=== PATIENT | male | born 1960 | race Caucasian/White ===

== ENCOUNTER 2021-03-20 18:10 | Emergency (ER) | payer OTHER ==
[~2021-03-20] VITALS: Ht 182.9 cm; Wt 86.4 kg
[2021-03-20 19:06] LABS: COLLECTION METHOD CLEAN CATCH
[2021-03-20 19:11] LABS: BASO % 0.3 % (0.0-2.0); EOS % 0.3 % (0-4.0); GRAN # 10.9 (1.4-6.5); GRAN % 75.6 % (42.2-75.2); HEMATOCRIT 48.2 % (42.0-52.0); HEMOGLOBIN 16.3 g/dl (13.5-18.0); LYMPH # 1.9 (1.2-3.4); MEAN CELL VOLUME 90 fl (80.0-100.0); MEAN CORPUSCULAR HEMOGLOBIN 30 pg (27.0-31.0); MEAN CORPUSCULAR HGB CONC 34 g/dl (33.0-37.0); MEAN PLATELET VOLUME 10.9 fl (7.4-10.4); MONO # 1.5 (0.1-0.6); MONO % 10.3 % (1.7-9.3); PLATELET COUNT 312 K/mm3 (130-400); RED BLOOD COUNT 5.36 M/mm3 (4.20-5.60); REDCELL DISTRIBUTION WIDTH-CV 13.2 % (11.5-14.5)
[2021-03-20 19:17] LABS: BILIRUBIN,TOTAL 0.6 mg/dL (0.0-1.0); CALCIUM 9.7 mg/dL (8.4-10.2); CREATININE, serum 0.89 (0.66-1.25); POTASSIUM 3.8 mmol/L (3.4-5.0)
[2021-03-20 19:28] LABS: MUCOUS Present /lpf; PH 6 (5-8); SQUAMOUS EPITHELIAL None Seen /hpf; URINE APPEARANCE Clear; URINE BACTERIA None Seen /hpf; URINE BILIRUBIN Negative (NEGATIVE); URINE BLOOD 3+ (NEGATIVE); URINE COLOR Yellow; URINE GLUCOSE Negative (NEGATIVE); URINE KETONE 1+ (NEGATIVE); URINE LEUKOCYTE ESTERASE Negative (NEGATIVE); URINE NITRATE Negative (NEGATIVE); URINE PROTEIN(semi-quant) Negative (NEGATIVE); URINE RBC >50 /hpf; URINE UROBILINOGEN Negative (NEGATIVE)
[2021-03-20] MEDS ORDERED: ASPIRIN 32325 MG/TAB PO (19:48)
[2021-03-20] MEDS ORDERED: ONE-A-DAY ESSE1 EACH PO (19:48)
[2021-03-20] MEDS ORDERED: PROBIOTIC DIGE1 EACH PO (19:49)
[2021-03-20] MEDS ORDERED: VITAMIN C500 MG PO (19:49)
[2021-03-20] MEDS ORDERED: PERCOCET 325 MG1 TA2 PO (22:38)
[2021-03-20] MEDS ORDERED: CIPRO 500MG TA500 MG PO (22:38)
[2021-03-20 23:17] VITALS: BP 151/94; PULSE 91; TEMP 98.7
== END 2021-03-20 23:17 | disposition home or self-care (01) ==
LOC: COL.ER 18:10
PROVIDERS: Physician Assistant
DX: N20.0 Calculus of kidney (principal); N13.30 Unspecified hydronephrosis; N39.0 Urinary tract infection, site not specified; D72.829 Elevated white blood cell count, unspecified
CPT/HCPCS: J1885; Q9967